=== PATIENT | male | born 1960 | race Caucasian/White ===

== ENCOUNTER 2024-05-30 22:25 | Emergency (ER) | payer MEDICARE, OTHER ==
[2024-05-31 00:14] VITALS: BP 130/69; PULSE 75
== END 2024-05-31 00:13 | disposition home or self-care (01) ==
LOC: JD.ED 22:25
DX: R42 Dizziness and giddiness (principal); S60.112A Contusion of left thumb with damage to nail, initial encounter; S00.81XA Abrasion of other part of head, initial encounter; G89.4 Chronic pain syndrome; T42.6X5A Adverse effect of other antiepileptic and sedative-hypnotic drugs, initial encounter; W18.30XA Fall on same level, unspecified, initial encounter
CPT/HCPCS: 99283

== ENCOUNTER 2025-01-08 08:50 | Emergency (ER) | payer MEDICARE, OTHER ==
[2025-01-08 10:11] VITALS: BP 135/79; PULSE 59
== END 2025-01-08 10:05 | disposition home or self-care (01) ==
LOC: JD.ED 08:50
DX: J40 Bronchitis, not specified as acute or chronic (principal); E66.9 Obesity, unspecified; Z68.38 Body mass index [BMI] 38.0-38.9, adult; Z86.16 Personal history of COVID-19; Z79.899 Other long term (current) drug therapy
CPT/HCPCS: 71046; 71046-26; 87428-QW; 99283; 99284